=== PATIENT | male | born 1945 | race Caucasian/White ===

== ENCOUNTER → 2016-10-25 | Outpatient (CLI) | payer MEDICARE ==
[2016-10-25 18:37] LABS: Basophils # (A) 0.1 k/uL (0-0.2); Basophils % (A) 1 %; CH 32.3; CHCM 34.4; Eosinophils # (A) 0.4 k/uL (0-0.7); Eosinophils % (A) 7 %; HCT 49.2 % (39.0-53.0); HGB 16.5 gm/dL (13.0-17.5); Luc # (Auto) 0.15; Luc % (Auto) 3; Lymphocytes # (A) 1.3 k/uL (1.0-4.8); Lymphocytes % (A) 22 %; MCH 31.7 pg (25.0-35.0); MCHC 33.6 g/dL (31.0-37.0); MCV 94.3 fL (80.0-100.0); Mean Platelet Volume 7.4; Monocytes # (A) 0.6 k/uL (0-1.0); Monocytes % (A) 9 %; Neutrophils # (A) 3.5 k/uL (1.3-7.7); Neutrophils % (A) 58 %; RBC 5.22 m/uL (4.30-5.90); RDW 13.6 % (11.5-15.5); WBC 5.9 k/uL (3.8-10.6); WBC (Perox) 5.82
[2016-10-25 18:59] LABS: ALT 29 U/L (21-72); AST 24 U/L (17-59); Alkaline Phosphatase 84 U/L (38-126); Anion Gap 13 mmol/L; Blood Urea Nitrogen 19 mg/dL (9-20); Calcium 9.7 mg/dL (8.4-10.2); Carbon Dioxide 28 mmol/L (22-30); Chloride 101 mmol/L (98-107); Cholesterol 179 mg/dL (<200); Glucose 88 mg/dL (74-99); HDL Cholesterol 56 mg/dL (40-60); Non-African American GFR(MDRD) 59 (>60 ml/min/1.73 sqM); Potassium 4.1 mmol/L (3.5-5.1); Sodium 142 mmol/L (137-145); Total Bilirubin 1.2 mg/dL (0.2-1.3); Triglycerides 117 mg/dL (<150)
== END | disposition home or self-care (01) ==
LOC: MMGSC 09:40
PROVIDERS: ATTEND Family Medicine
DX: Z00.00 Encounter for general adult medical examination without abnormal findings (principal); Z12.5 Encounter for screening for malignant neoplasm of prostate; I10 Essential (primary) hypertension; E78.5 Hyperlipidemia, unspecified
CPT/HCPCS: 80061; 80053; 85025; 36415; G0103

== ENCOUNTER 2019-02-14 12:18 | Observation (INO) | payer MEDICARE ==
[2019-02-14] MEDS ORDERED: SODIUM CHLORIDE 0.9% 1,000 ML IV STA (12:59)
[2019-02-14] MEDS ORDERED: HEPARIN SODIUM,PORCINE 5,000 UNIT/ML 1 ML VIAL IV PRN (13:09)
--- NOTE | 2019-02-14 13:12 | ED ---
General Adult HPI - General Chief complaint: Arrhythmia/Palpitations Stated complaint: AFIB Time Seen by Provider: 02/14/19 12:28 Source: patient, family Mode of arrival: ambulatory Limitations: no limitations - History of Present Illness Initial comments: Dictation was produced using [employer] dictation software. please excuse any gramma tical, word or spelling errors. Chief Complaint: 73-year-old male past medical history of hypertension presents with new onset atrial fibrillation. History of Present Illness: Patient is a 73-year-old male. He was at the surgery Center about to get surgery to his left hand when he had a preop EKG showing atrial fibrillation. Patient is no history of cardiac disease. Patient denies any symptoms of palpitations. He went for a walk for approximately 2-3 miles without any issues. Patient has no other complaints at this time. Over the last 3 weeks she's been having a cough heart rate improved. Patient has no other complaints. The ROS documented in this emergency department record has been reviewed and confirmed by me. Those systems with pertinent positive or negative responses have been documented in the HPI. All other systems are other negative and/or noncontributory. PHYSICAL EXAM: General Impression: Alert and oriented x3, not in acute distress HEENT: Normocephalic atraumatic, extra-ocular movements intact, pupils equal and reactive to light bilaterally, mucous membranes moist. Cardiovascular: Irregularly irregular Chest: Lungs clear to auscultation bilaterally, no rhonchi, no wheeze, no rales Abdomen: Bowel sounds present, abdomen soft, non-tender, non-distended, no organomegaly Musculoskeletal: Pulses present and equal in all extremities, no peripheral edema Motor: no focal deficits noted Neurological: CN II-XII grossly intact, no focal motor or sensory deficits noted Skin: Intact with no visualized rashes Psych: Normal affect and mood ED course: 73-year-old male with no onset atrial fibrillation. Upon arrival are within acceptable limits. EKG shows atrial fibrillation. Patient is otherwise well-appearing. Laboratory evaluation obtained. CBC, coag panel, metabolic panel is unremarkable. Troponin is 0.022. Patient reevaluated and continues to endorse no symptoms. Chest x-ray is unremarkable. Patient be admitted for notes atrial fibrillation. Patient started on heparin. Discussed patient case with Dr. Mckinley rate was went except patient's care. Cardiology to be consulted. EKG interpretation: Ventricular rate 91, A. fib, QS 94, QTC 418. No GA prolongation, no QTC prolongation, no ST or T-wave changes noted. - Related Data Home Medications Medication Instructions Recorded Confirmed Dicyclomine [Bentyl] 10 mg PO TID 02/14/19 02/14/19 Hydrochlorothiazide [Hydrodiuril] 12.5 mg PO DAILY 02/14/19 02/14/19 Lisinopril [Zestril] 10 mg PO DAILY 02/14/19 02/14/19 Pantoprazole Sodium 20 mg PO DAILY 02/14/19 02/14/19 Simvastatin [Zocor] 40 mg PO DAILY 02/14/19 02/14/19 Allergies Allergy/AdvReac Type Severity Reaction Status Date / Time No Known Allergies Allergy Verified 02/14/19 12:39 Review of Systems ROS Statement: Those systems with pertinent positive or pertinent negative responses have been documented in the HPI. ROS Other: All systems not noted in ROS Statement are negative. 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 ] Respiratory 18 18 Rate Blood Pressure 114/88 106/79 O2 Sat by Pulse 97 97 Oximetry Medical Decision Making - Lab Data Result diagrams: 02/14/19 13:50 02/14/19 13:50 Lab Results 02/14/19 02/14/19 02/14/19 Range/Units 13:50 13:50 13:50 WBC 6.1 (3.8-10.6) k/uL RBC 5.44 (4.30-5.90) m/uL Hgb 16.5 (13.0-17.5) gm/dL Hct 49.6 (39.0-53.0) % MCV 91.1 (80.0-100.0) fL MCH 30.4 (25.0-35.0) pg MCHC 33.4 (31.0-37.0) g/dL RDW 13.1 (11.5-15.5) % Plt Count 270 (150-450) k/uL Neutrophils % 62 % Lymphocytes % 19 % Monocytes % 9 % Eosinophils % 6 % Basophils % 2 % Neutrophils # 3.7 (1.3-7.7) k/uL Lymphocytes # 1.2 (1.0-4.8) k/uL Monocytes # 0.6 (0-1.0) k/uL Eosinophils # 0.4 (0-0.7) k/uL Basophils # 0.1 (0-0.2) k/uL PT 10.6 (9.0-12.0) sec INR 1.0 (<1.2) APTT 26.2 (22.0-30.0) sec Sodium 140 (137-145) mmol/L Potassium 4.0 (3.5-5.1) mmol/L Chloride 105 (98-107) mmol/L Carbon Dioxide 27 (22-30) mmol/L Anion Gap 8 mmol/L BUN 23 H (9-20) mg/dL Creatinine 1.12 (0.66-1.25) mg/dL Est GFR (CKD-EPI)AfAm 74 (>60 ml/min/1.73 sqM) Est GFR (CKD-EPI)NonAf 64 (>60 ml/min/1.73 sqM) Glucose 92 (74-99) mg/dL Calcium 9.7 (8.4-10.2) mg/dL Magnesium 2.0 (1.6-2.3) mg/dL Total Bilirubin 0.8 (0.2-1.3) mg/dL AST 23 (17-59) U/L ALT 24 (21-72) U/L Alkaline Phosphatase 84 (38-126) U/L Troponin I (0.000-0.034) ng/mL Total Protein 7.0 (6.3-8.2) g/dL Albumin 4.1 (3.5-5.0) g/dL 02/14/19 Range/Units 13:50 WBC (3.8-10.6) k/uL RBC (4.30-5.90) m/uL Hgb (13.0-17.5) gm/dL Hct (39.0-53.0) % MCV (80.0-100.0) fL MCH (25.0-35.0) pg MCHC (31.0-37.0) g/dL RDW (11.5-15.5) % Plt Count (150-450) k/uL Neutrophils % % Lymphocytes % % Monocytes % % Eosinophils % % Basophils % % Neutrophils # (1.3-7.7) k/uL Lymphocytes # (1.0-4.8) k/uL Monocytes # (0-1.0) k/uL Eosinophils # (0-0.7) k/uL Basophils # (0-0.2) k/uL PT (9.0-12.0) sec INR (<1.2) APTT (22.0-30.0) sec Sodium (137-145) mmol/L Potassium (3.5-5.1) mmol/L Chloride (98-107) mmol/L Carbon Dioxide (22-30) mmol/L Anion Gap mmol/L BUN (9-20) mg/dL Creatinine (0.66-1.25) mg/dL Est GFR (CKD-EPI)AfAm (>60 ml/min/1.73 sqM) Est GFR (CKD-EPI)NonAf (>60 ml/min/1.73 sqM) Glucose (74-99) mg/dL Calcium (8.4-10.2) mg/dL Magnesium (1.6-2.3) mg/dL Total Bilirubin (0.2-1.3) mg/dL AST (17-59) U/L ALT (21-72) U/L Alkaline Phosphatase (38-126) U/L Troponin I 0.022 (0.000-0.034) ng/mL Total Protein (6.3-8.2) g/dL Albumin (3.5-5.0) g/dL Disposition Clinical Impression: Atrial fibrillation Disposition: ADMITTED IP TO THIS HOSP Condition: Fair Referrals: Dara Holbrook MD [Primary Care Provider] - 1-2 days Decision Time: 15:14
[2019-02-14] MEDS ORDERED: HEPARIN SOD,PORK IN 0.45% NACL 25,000 UNIT in 0.45% NACL 1 250ML.BAG IV SCH (13:15)
[2019-02-14] MEDS: HEPARIN SODIUM,PORCINE 5,000 UNIT/ML 1 ML VIAL IV ONE (13:56)
[2019-02-14 14:01] LABS: Basophils # (A) 0.1 k/uL (0-0.2); Basophils % (A) 2 %; Eosinophils # (A) 0.4 k/uL (0-0.7); Eosinophils % (A) 6 %; HCT 49.6 % (39.0-53.0); HGB 16.5 gm/dL (13.0-17.5); Lymphocytes # (A) 1.2 k/uL (1.0-4.8); Lymphocytes % (A) 19 %; MCH 30.4 pg (25.0-35.0); MCHC 33.4 g/dL (31.0-37.0); MCV 91.1 fL (80.0-100.0); Mean Platelet Volume 6.8; Monocytes # (A) 0.6 k/uL (0-1.0); Monocytes % (A) 9 %; Neutrophils # (A) 3.7 k/uL (1.3-7.7); Neutrophils % (A) 62 %; Platelet Count 270 k/uL (150-450); RBC 5.44 m/uL (4.30-5.90); RDW 13.1 % (11.5-15.5); WBC 6.1 k/uL (3.8-10.6)
--- NOTE | 2019-02-14 14:15 | XR ---
EXAMINATION TYPE: XR chest 2V DATE OF EXAM: 02/14/2019 COMPARISON: NONE HISTORY: Atrial fibrillation. TECHNIQUE: Frontal and lateral views of the chest are obtained. FINDINGS: Overlying EKG leads are seen. There is chronic parenchymal change without suspicious focal air space opacity, pleural effusion, or pneumothorax seen. The cardiac silhouette size is upper hu its of normal. Mild diffuse tracheal narrowing is noted. The osseous structures are intact. IMPRESSION: No suspicious acute pulmonary infiltrate.
[2019-02-14 14:17] LABS: Albumin 4.1 g/dL (3.5-5.0); Calcium 9.7 mg/dL (8.4-10.2); Total Bilirubin 0.8 mg/dL (0.2-1.3)
[2019-02-14 14:23] LABS: Partial Thromboplastin Time 26.2 sec (22.0-30.0); Prothrombin Time 10.6 sec (9.0-12.0)
[2019-02-14] MEDS ORDERED: NALOXONE 0.4 MG/ML 1 ML VIAL IV PRN (15:14)
[2019-02-14] MEDS ORDERED: SODIUM CHLORIDE 0.9% 1,000 ML IV SCH (15:15)
--- NOTE | 2019-02-14 17:30 | P.HPIM ---
History of Present Illness H&P Date: 02/14/19 Chief Complaint: Referred from preop for A. fib The patient is a 73-year-old male the past medical history of essential hypertension, GERD, dyslipidemia who was referred to the ER from Dr. Lynn office for A. fib with RVR. Apparently the patient was having his preop workup for planned scheduled left wrist surgery when the patient was noted to be in A. fib with RVR with a rate of 105, the patient denied any symptoms of lightheadedness palpitations dizziness chest pain nausea vomiting blurry vision. The patient has no complaints he denies shortness of breath cough or subjective fevers chills or night sweats. The patient reports that he's physically active reports that he walks 2 miles several times a week without any exertional dyspnea or chest pain. In the ER the patient had a EKG and that showed atrial fibrillation with controlled ventricular rate with heart rate in the 80s, chest x-ray showed no acute pulmonary infiltrate. Troponin was 0.022. The patient was started on heparin drip and recommended for admission for A. fib Review of Systems Pertinent positives per HPI all other systems negative Past Medical History Past Medical History: Hypertension History of Any Multi-Drug Resistant Organisms: None Reported Past Surgical History: Back Surgery, Bladder Surgery, Orthopedic Surgery Additional Past Surgical History / Comment(s): Gastric abscess removal surgery, Left Knee repair Past Psychological History: No Psychological Hx Reported Smoking Status: Former smoker Past Alcohol Use History: Occasional Past Drug Use History: None Reported Medications and Allergies Home Medications Medication Instructions Recorded Confirmed Type Dicyclomine [Bentyl] 10 mg PO TID 02/14/19 02/14/19 History Hydrochlorothiazide [Hydrodiuril] 12.5 mg PO DAILY 02/14/19 02/14/19 History Lisinopril [Zestril] 10 mg PO DAILY 02/14/19 02/14/19 History Pantoprazole Sodium 20 mg PO DAILY 02/14/19 02/14/19 History Simvastatin [Zocor] 40 mg PO DAILY 02/14/19 02/14/19 History Allergies Allergy/AdvReac Type Severity Reaction Status Date / Time No Known Allergies Allergy Verified 02/14/19 12:39 Physical Exam Vitals: Vital Signs Temp Pulse Pulse Resp BP Pulse Ox 02/14/19 14:02 80 18 106/79 97 02/14/19 12:45 99 02/14/19 12:24 98.2 F 87 18 114/88 97 Intake and Output 02/14/19 02/14/19 02/14/19 06:59 14:59 22:59 Other: Weight 85.729 kg Constitutional: No acute distress, conversant, pleasant Eyes: Anicteric sclerae, moist conjunctiva, no lid-lag, PERRLA ENMT: NC/AT,Oropharynx clear, no erythema, exudates Neck:Supple, FROM, no masses, or JVD, No carotid bruits; No thyromegaly Lungs: Clear to auscultation, Clear to percussion, Normal respiratory effort, no accessory muscle use Cardiovascular: Heart regular in rate and rhythm, No murmurs, gallops, or rubs no peripheral edema Abdominal: Soft Nontender, nom distended, no guarding, no rebound or rigidity, Normoactive bowel sounds No hepatomegaly, No splenomegaly, No palpable mass No abdominal wall hernia noted Skin: Normal temperature, tone, texture, turgor, No induration No subcutaneous nodules, No rash, lesions, No ulcers Extremities:No digital cyanosis No clubbing, Pedal pulses intact and symmetrical Radial pulses intact and symmetrical Normal gait and station, No calf tenderness Psychiatric: Alert and oriented to person, place and time, Appropriate affect Intact judgement Neuro: Muscles Strength 5/5 in all 4 extremities, Sensation to light touch grossly present throughout, Cranial nerves II-XII grossly intact. No focal sensory deficits Results CBC & Chem 7: 02/14/19 13:50 02/14/19 13:50 Labs: Abnormal Lab Results - Last 24 Hours (Table) 02/14/19 Range/Units 13:50 BUN 23 H (9-20) mg/dL Assessment and Plan (1) New onset atrial fibrillation Current Visit: Yes Status: Acute Code(s): I48.91 - UNSPECIFIED ATRIAL FIBRILLATION SNOMED Code(s): 62177549 (2) Essential hypertension Current Visit: Yes Status: Acute Code(s): I10 - ESSENTIAL (PRIMARY) HYPERTENSION SNOMED Code(s): 02614526 (3) Dyslipidemia Current Visit: Yes Status: Acute Code(s): E78.5 - HYPERLIPIDEMIA, UNSPECIFIED SNOMED Code(s): 639135122 (4) GERD (gastroesophageal reflux disease) Current Visit: Yes Status: Acute Code(s): K21.9 - GASTRO-ESOPHAGEAL REFLUX DISEASE WITHOUT ESOPHAGITIS SNOMED Code(s): 121058841 Plan: Patient is placed in observation anticipate a less than 2 midnight stay with atrial fibrillation with controlled ventricular rate found incidentally on his preop workup, electrolytes are normal will order TSH and NT proBNP and echocardiogram, with plans to consult cardiology for further recommendations. We'll plan to transition the patient to DOAC eliquis later today. We'll resume his home hypertensive regimen and continue to follow his clinical course. CODE STATUS: Full code Anticipated discharge 1-[address]: Home Discussed plan of care with patient's /son
[2019-02-14] MEDS: APIXABAN 5 MG TAB PO SCH ×2 (21:28→21:38)
[2019-02-14] MEDS: DICYCLOMINE 10 MG CAP PO SCH (21:38)
[2019-02-15 05:37] VITALS: RESP 18
[2019-02-15] MEDS ORDERED: PANTOPRAZOLE 40 MG TABLET PO SCH (07:30)
[2019-02-15 08:02] VITALS: TEMP 98.1
[2019-02-15] MEDS: DICYCLOMINE 10 MG CAP PO SCH (08:11)
[2019-02-15] MEDS: APIXABAN 5 MG TAB PO SCH (08:11)
[2019-02-15] MEDS ORDERED: ATORVASTATIN 20 MG TAB PO SCH (09:00)
[2019-02-15] MEDS ORDERED: LISINOPRIL 10 MG TAB PO SCH (09:00)
[2019-02-15] MEDS ORDERED: HYDROCHLOROTHIAZIDE 12.5 MG CAP PO SCH (09:00)
--- NOTE | 2019-02-15 09:36 | ECHOF ---
Referral Reason:A. fib MEASUREMENTS -------- HEIGHT: 172.7 cm WEIGHT: 87.1 kg BP: 112/85 IVSd: 1.0 cm (0.6 - 1.1) LVIDd: 3.3 cm (3.9 - 5.3) LVPWd: 1.2 cm (0.6 - 1.1) IVSs: 1.8 cm LVIDs: 1.1 cm LVPWs: 1.5 cm LAESV Index (A-L): 26.01 ml/m Ao Diam: 3.4 cm (2.0 - 3.7) AV Cusp: 2.0 cm (1.5 - 2.6) LA Diam: 3.0 cm (2.7 - 3.8) RAP: 5.00 mmHg RVSP: 21.43 mmHg FINDINGS -------- Atrial fibrillation. This was a technically adequate study. The left ventricular size is normal. There is mild concentric left ventricular hypertrophy. Overa ll left ventricular systolic function is normal with, an EF between 55 - 60 %. The right ventricle is normal in size. Normal LA size by volume 22+/-6 ml/m2. The right atrial size is normal. The aortic valve is trileaflet and appears structurally normal. The mitral valve is normal. The mitral valve leaflets are mildly thickened. There is trace mitral regurgitation. The tricuspid valve appears structurally normal. Trace tricuspid regurgitation present. Right doug tricular systolic pressure is normal at < 35 mmHg. There is no pulmonic regurgitation present. The aortic root size is normal. Normal inferior vena cava with normal inspiratory collapse consistent with estimated right atrial pre ssure of 5 mmHg. There is no pericardial effusion. CONCLUSIONS -------- 1. Atrial fibrillation. 2. This was a technically adequate study. 3. The left ventricular size is normal. 4. There is mild concentric left ventricular hypertrophy. 5. Overall left ventricular systolic function is normal with, an EF between 55 - 60 %. 6. The right ventricle is normal in size. 7. Normal LA size by volume 22+/-6 ml/m2. 8. The right atrial size is normal. 9. The aortic valve is trileaflet and appears structurally normal. 10. The mitral valve is normal. 11. The mitral valve leaflets are mildly thickened. 12. There is trace mitral regurgitation. 13. The tricuspid valve appears structurally normal. 14. Trace tricuspid regurgitation present. 15. Right ventricular systolic pressure is normal at < 35 mmHg. 16. There is no pulmonic regurgitation present. 17. The aortic root size is normal. 18. Normal inferior vena cava with normal inspiratory collapse consistent with estimated right atrial pressure of 5 mmHg. 19. There is no pericardial effusion. COLLAR CUTTER: Fallon Sanchez RDCS
[2019-02-15 11:16] VITALS: BP 112/77; PULSE 73
--- NOTE | 2019-02-15 17:34 | P.DS ---
Providers Date of admission: 02/14/19 15:14 Expected date of discharge: 02/15/19 Attending physician: Elías López MD Consults: 02/15/19 15:32 Consult Physician Routine Consulting Provider: Jona Arreguin Consult Reason/Comments: new AFib Do you want consulting provider notified?: Already Contacted Primary care physician: Dara Holbrook - Discharge Diagnosis(es) (1) New onset atrial fibrillation Status: Acute (2) Essential hypertension Status: Acute (3) Dyslipidemia Status: Acute (4) GERD (gastroesophageal reflux disease) Status: Acute Hospital Course: The patient is a 73-year-old male the past medical history of essential hypertension, GERD, dyslipidemia who was referred to the ER from Dr. Lynn office for A. fib with RVR. Apparently the patient was having his preop workup for planned scheduled left wrist surgery. The patient arrived to the ER the patient was noted to be in A. fib with a controlled ventricular rate in the 80s he was started on heparin drip, chest x-ray was ordered showed no acute infiltrate troponin was negative at 0.022. Echocardiogram done was consistent with ejection fraction of 55-60%, without any significant valvular abnormalities. Given the patient's CHA2 DS2 Vasc score of 3 and discussing ongoing anticoagulation patient opted for DOAC Eliquis as after risk and benefits were weighed and discussed thoroughly. The patient was seen by cardiology and subsequently discharged home in stable condition with plans for follow-up with Dr. Arreguin 02/22/19. this discharge process took approximately 30 minutes Focused exam Cardiovascular: irregularly irregular, no murmurs, rubs or gallop, no peripheral edema Patient Condition at Discharge: Good Plan - Discharge Summary Discharge Rx Participant: No New Discharge Prescriptions: New Apixaban [Eliquis] 5 mg PO BID #60 tab Continue Pantoprazole Sodium 20 mg PO DAILY Lisinopril [Zestril] 10 mg PO DAILY Simvastatin [Zocor] 40 mg PO DAILY Hydrochlorothiazide [Hydrodiuril] 12.5 mg PO DAILY Dicyclomine [Bentyl] 10 mg PO TID Discharge Medication List Dicyclomine [Bentyl] 10 mg PO TID 02/14/19 [History] Hydrochlorothiazide [Hydrodiuril] 12.5 mg PO DAILY 02/14/19 [History] Lisinopril [Zestril] 10 mg PO DAILY 02/14/19 [History] Pantoprazole Sodium 20 mg PO DAILY 02/14/19 [History] Simvastatin [Zocor] 40 mg PO DAILY 02/14/19 [History] Apixaban [Eliquis] 5 mg PO BID #60 tab 02/15/19 [Rx] Follow up Appointment(s)/Referral(s): Jona Arreguin MD [STAFF PHYSICIAN] - 02/22/19 10:15 am Dara Holbrook MD [Primary Care Provider] - 02/19/19 11:45 am Patient Instructions/Handouts: A-fib (Atrial Fibrillation) (DC), Safe Use of Anticoagulants (DC) Discharge Disposition: HOME SELF-CARE
--- NOTE | 2019-02-15 17:59 | CONS ---
CONSULTATION Mr. Reza is a 73-year-old male with known history of hypertension and history of hyperlipidemia who presented to Dr. Lynn to undergo hand surgery, when he was noted to be in atrial fibrillation. The patient is unaware of the arrhythmia. He is active physically; walks 3-4 miles a day without any difficulty. Denies any change in his breathing or energy. Denies any palpitation, dizziness or syncope. He has no chest discomfort. No PND, orthopnea or peripheral edema. He was sent to the emergency room and subsequently admitted. He remains in persistent atrial fibrillation with controlled ventricular response. His coronary risk factors are remarkable for hypertension and hyperlipidemia. He stopped smoking 40 years ago. He is nondiabetic and there is no family history of premature coronary disease. HOME MEDICATIONS: His medications at home include: 1. Simvastatin 40 mg daily. 2. Lisinopril 10 mg daily. 3. Protonix 20 mg daily. 4. Hydrochlorothiazide 12.5 mg daily. 5. Bentyl. REVIEW OF SYSTEMS: RESPIRATORY SYSTEM: He has no recent wheezing. No cough. He has some sinus drainage. No history of obstructive lung disease. GI SYSTEM: No recent GI bleeding. No peptic ulcer disease. He has prior history of diverticulitis. SYSTEM: No dysuria or hematuria. NERVOUS SYSTEM: No stroke or seizure. SOCIAL HISTORY: He drinks black tea. Rare alcohol intake. PHYSICAL EXAMINATION: He is a 73-year-old male, alert, oriented, in no apparent distress. Blood pressure 112/70 with a heart rate in the 70s. HEAD: Normocephalic. EYES: Sclerae anicteric. NECK: Good carotid upstroke. No bruit. No jugular venous distention. LUNGS: Clear to auscultation. HEART: Irregularly irregular. S1, S2. No S3. No rub. ABDOMEN: Soft, nontender. Positive bowel sounds. No organomegaly. EXTREMITIES: No edema. Intact distal pulses. LAB DATA/IMAGING: Troponin 0.022. NT-proBNP of 265. TSH 1.6. Potassium 4.0. BUN and creatinine 23 and 1.12. Hemoglobin of 16.5, white blood cells of 6.1. EKG revealed atrial fibrillation, rate of 91, normal axis and intervals. Nonspecific ST- T wave changes with poor R-wave progression. Echocardiogram revealed a preserved left ventricular size and systolic function with no significant valvular disease. Chest x- ray shows no acute infiltrate. IMPRESSION: 1. Atrial fibrillation of unknown duration, asymptomatic. According to the patient, he had an EKG about 2 weeks ago that was reported to show sinus mechanism. 2. History of hypertension. 3. Hyperlipidemia. RECOMMENDATIONS: From the cardiac standpoint, his CHADS VASC 2 score is 2. The patient has been started on Eliquis. His ventricular response has been under reasonable control without any negative chronotropic drugs, suggestive of evidence of AV aureliano disease. The patient has been ambulating without difficulty. From the cardiac standpoint, he should be able to be discharged home today and followed as an outpatient. If he has persistent atrial fibrillation, then he can be evaluated for cardioversion to try to restore sinus mechanism. Those findings and recommendations were discussed with the patient and his family, and they are in full understanding and agreement. Thank you for this consult. Will follow with you. TIFFANY / MADDIE: [id number] /
== END 2019-02-15 17:18 | disposition home or self-care (01) ==
LOC: EC 12:18 → 3SCARD 15:14
PROVIDERS: ADMIT Family Medicine; ATTEND Family Medicine
DX: I48.1 Persistent atrial fibrillation (principal); I10 Essential (primary) hypertension; K21.9 Gastro-esophageal reflux disease without esophagitis; E78.5 Hyperlipidemia, unspecified; Z79.899 Other long term (current) drug therapy; Z87.891 Personal history of nicotine dependence; Z87.19 Personal history of other diseases of the digestive system
CPT/HCPCS: 96366 ×2; 96376; 96365; 99285; 36415; 93005; 93306; 83880; 80053; 84443; 83735; 84484; 85025; 85610; 85730; 71046; G0378 ×2; J1644 ×2

== ENCOUNTER 2021-01-30 19:23 | Emergency (ER) | payer MEDICARE ==
[2021-01-30 19:30] VITALS: BP 137/92; PULSE 100; RESP 20; TEMP 97.9
[2021-01-30] MEDS ORDERED: KETOROLAC 15 MG/ML 1 ML VIAL IM STA (19:56)
--- NOTE | 2021-01-30 20:15 | ED ---
ENT HPI - General Chief complaint: ENT Stated complaint: Ear infection Time Seen by Provider: 01/30/21 19:34 Source: patient Mode of arrival: ambulatory Limitations: no limitations - History of Present Illness Initial comments: Patient is a 75-year-old male presenting to emergency Department with complaints of right ear discomfort over the past month. He states he's been dealing with an outer ear infection over the past few weeks. He was able to see an ENT specialist, has appointment was on a Monday, 5 days ago. They put an ear wick in and he is currently on antibiotic eardrops. He states he does have another follow-up in about a week and a half for over the past few days his pain has been increasing. He states he has pain going into his right jaw as well as giving him a headache. He's been trying Tylenol and Motrin without improvement, he did take a tramadol today, he only had mild relief of pain. She talked to his son who is a physician and he recommended coming into the ER for further evaluation. Patient denies any fevers or chills, no chest pain or shortness of breath, no nausea or vomiting. He has no further complaints. - Related Data Home Medications Medication Instructions Recorded Confirmed Dicyclomine [Bentyl] 10 mg PO TID 02/14/19 02/14/19 Pantoprazole Sodium 20 mg PO DAILY 02/14/19 02/14/19 Simvastatin [Zocor] 40 mg PO DAILY 02/14/19 02/14/19 hydroCHLOROthiazide [Hydrodiuril] 12.5 mg PO DAILY 02/14/19 02/14/19 lisinopriL [Zestril] 10 mg PO DAILY 02/14/19 02/14/19 Previous Rx's Medication Instructions Recorded Apixaban [Eliquis] 5 mg PO BID #60 tab 02/15/19 Ciprofloxacin HCl [Cipro] 500 mg PO BID 7 Days #14 tab 01/30/21 Allergies Allergy/AdvReac Type Severity Reaction Status Date / Time No Known Allergies Allergy Verified 01/30/21 19:30 Review of Systems ROS Statement: Those systems with pertinent positive or pertinent negative responses have been documented in the HPI. ROS Other: All systems not noted in ROS Statement are negative. Past Medical History Past Medical History: Hyperlipidemia, Hypertension History of Any Multi-Drug Resistant Organisms: None Reported Past Surgical History: Back Surgery, Bladder Surgery, Orthopedic Surgery Additional Past Surgical History / Comment(s): Gastric abscess removal surgery, Left Knee repair Past Anesthesia/Blood Transfusion Reactions: No Reported Reaction Past Psychological History: No Psychological Hx Reported Smoking Status: Never smoker Past Alcohol Use History: Occasional Past Drug Use History: None Reported General Exam - General Exam Comments Initial Comments: GENERAL: Patient is well-developed and well-nourished. Patient is nontoxic and in no acute distress. HEAD: Atraumatic, normocephalic. EYES: Pupils equal round and reactive to light, extraocular movements intact, sclera anicteric, conjunctiva are normal. Eyelids were unremarkable. ENT: Left TM and EAC are normal,, right EAC is very swollen, there is a ear wick present, TM is not visible. He does have some pain with movement of the external ear. No visible facial swelling or erythema on the external ear. nares patent, oropharynx clear without exudates. Moist mucous membranes. NECK: Normal range of motion, supple without lymphadenopathy or JVD. LUNGS: Unlabored respirations. Breath sounds clear to auscultation bilaterally and equal. No wheezes rales or rhonchi. HEART: Regular rate and rhythm without murmurs, rubs or gallops. MUSCULOSKELETAL: Normal extremities with adequate strength and normal range of motion, no pitting or edema. No clubbing or cyanosis. NEUROLOGICAL: Patient is alert and oriented x 3. Motor and sensory are also intact. Cranial nerves II through XII grossly intact. Symmetrical smile. Normal speech, normal gait. PSYCH: Normal mood, normal affect. SKIN: Warm, Dry, normal turgor, no rashes or lesions noted. Limitations: no limitations Course Vital Signs 01/30/21 19:27 Temperature 97.9 F Pulse Rate 100 Respiratory 20 Rate Blood Pressure 137/92 O2 Sat by Pulse 98 Oximetry Medical Decision Making - Medical Decision Making Patient is a 75-year-old male here for right ear pain over the past month. He is currently being treated for otitis externa, he has a every week present, not able to visualize his TM secondary to swelling in the ear wick. He continues to have pain. His vitals are stable, afebrile. CT of the mastoid, brain showed no acute abnormalities other then the right sided otitis externa. Patient was given Toradol for discomfort today. I discussed with patient that he needs to continue to follow-up with his ENT. I will put him on some oral antibiotics to see if that improves his symptoms. He should continue with his eardrops. He is agreeable to this plan of care. Return parameters were discussed with him and he verbalized understanding. Case discussed with Dr. Juarez. Disposition Clinical Impression: Right otitis externa Disposition: HOME SELF-CARE Condition: Stable Instructions (If sedation given, give patient instructions): Otitis Externa (ED) Additional Instructions: Please return to the Emergency Department if symptoms worsen or any other concerns. Please continue with your already prescribed ear drops. Take oral antibiotics as prescribed. Continue with Tylenol and/or ibuprofen for discomfort. Follow-up with your ENT. Prescriptions: Ciprofloxacin HCl [Cipro] 500 mg PO BID 7 Days #14 tab Is patient prescribed a controlled substance at d/c from ED?: No Referrals: Dara Holbrook MD [Primary Care Provider] - 1-2 days Kavin Churchill DO [Doctor of Osteopathic Medicine] - 1-2 days Time of Disposition: 21:43
--- NOTE | 2021-01-30 20:58 | CT ---
EXAMINATION TYPE: CT mastoid wo con DATE OF EXAM: 01/30/2021 COMPARISON: HISTORY: RT ear pain x1 month. CT DLP: 230.3 mGycm Automated exposure control for dose reduction was used. CT scan of the temporal bones. History right ear pain for one month. Comparison none. FINDINGS: Images obtained without contrast through the temporal bones. There is occlusion of the right external auditory canal. There is normal aeration of the epitympanic recess bilaterally. There is fairly normal aeration of the middle ear cavity bilaterally. The mastoid air cells show fairly normal aeration. I see no bony destructive process. Mandibular condyles are in tact. The internal auditory canals are intact. There is no evidence of cerebellopontine angle mass. IMPRESSION: Occlusion right external auditory canal consistent with otitis externa. No abnormalities seen of the middle ear cavity.
[2021-01-30] MEDS ORDERED: ACET/COD 300 MG/30 MG STARTER PACK 6 TAB BTL PO STA (21:42)
== END 2021-01-30 21:55 | disposition home or self-care (01) ==
LOC: EC 19:23
DX: H60.91 Unspecified otitis externa, right ear (principal); I10 Essential (primary) hypertension; E78.5 Hyperlipidemia, unspecified; Z79.01 Long term (current) use of anticoagulants; Z79.899 Other long term (current) drug therapy
CPT/HCPCS: 70486; 99283; 96372; J1885

== ENCOUNTER 2022-02-01 09:19 | Day surgery (SDC) | payer MEDICARE ==
[~2022-02-01 09:19] MED LIST: LACTATED RINGERS 1,000 ML IV SCH
[2022-02-01 09:51] VITALS: TEMP 98
[2022-02-01] MEDS ORDERED: LIDOCAINE 1% (10MG/ML) FOR IV START INTRADERMA ONE (10:05)
[2022-02-01] MEDS ORDERED: PROPOFOL 10 MG/ML 20 ML VIAL IV ONE (11:06)
--- NOTE | 2022-02-01 11:25 | P.PCN ---
Date of Procedure: 02/01/22 Procedure(s) Performed: BRIEF HISTORY: Patient is a 76-year-old pleasant white male scheduled for an elective colonoscopy as a part of evaluation of lower abdominal pain and change in bowel habits. PROCEDURE PERFORMED: Colonoscopy with snare polypectomy. PREOPERATIVE DIAGNOSIS: Lower abdominal pain and change in bowel habits. IV sedation per Anesthesia. PROCEDURE: After informed consent was obtained, the patient, was brought into the endoscopy unit. IV sedation was administered by Anesthesia under continuous monitoring. Digital rectal examination was normal. Initially the Olympus CF-160 flexible video colonoscope was then inserted in the rectum, gradually advanced into the cecum without any difficulty. Careful examination was performed as the scope was gradually being withdrawn. Ileocecal valve and the appendiceal orifice were visualized and appeared normal. Prep was excellent. Mucosa of the cecum, ascending colon, transverse colon, descending colon, sigmoid colon, and rectum appeared normal. In the distal rectum there was a 5 mm polyp that was removed by snare polypectomy. Retroflexion was performed in the rectum and no lesions were seen. The patient tolerated the procedure well. IMPRESSION: 5 mm rectal polyp status post polypectomy Rest of the colon appeared normal RECOMMENDATIONS: Findings of this examination were discussed with the patient as well as a family. He was advised to follow with the biopsy results..
[2022-02-01 12:00] VITALS: BP 132/83; PULSE 49; RESP 20
== END 2022-02-01 12:06 | disposition home or self-care (01) ==
LOC: ORWHC2ENDO 09:19
PROVIDERS: ATTEND Internal Medicine Gastroenterology
DX: K63.5 Polyp of colon (principal); K21.9 Gastro-esophageal reflux disease without esophagitis; I10 Essential (primary) hypertension; E78.5 Hyperlipidemia, unspecified; I48.91 Unspecified atrial fibrillation; Z98.890 Other specified postprocedural states; Z79.01 Long term (current) use of anticoagulants; Z79.899 Other long term (current) drug therapy
CPT/HCPCS: 88305; 45385; J2704

== ENCOUNTER → 2022-04-06 | Outpatient (CLI) | payer MEDICARE ==
--- NOTE | 2022-04-06 15:45 | CT ---
EXAMINATION TYPE: CT angio chest DATE OF EXAM: 04/06/2022 COMPARISON: None HISTORY: 76-year-old male I72.71, Aneurysm ascending aorta TECHNIQUE: Contiguous axial scanning of the chest performed without and with IV Contrast, patient inj ected with 100ml mL of Isovue 370. Coronal/sagittal MIP reconstructions performed. 3-D reconstruction s generated on a dedicated independent workstation. CT DLP: 832.3 mGycm Automated exposure control for dose reduction was used. FINDINGS: Heart normal size without pericardial effusion. Some LAD coronary artery calcifications are noted. Aorta is borderline ectatic at 3.5 cm. Ectatic ascending aorta 3.8 cm. Bovine configuration to the aortic arch. Mild atherosclerotic arch calcifications. Initial noncontrast images show no evidence for acute intramural hematoma. Upper descending thoracic aorta aneurysmal at 3.5 cm. Mid descending thoracic aorta mildly aneurysmal at 3.0 cm. Lower descending thoracic aorta tortuous and aneurysmal up to 3.3 cm. Aorta at the thoracoabdominal junction mildly aneurysmal at 3.1 cm. Possible focal kinking and moderate to severe narrowing at the proximal celiac axis, axial image 149 and sagittal image 80 series 16. No evidence for aortic dissection. Large caliber to the main right and left pulmonary arteries up to 2.2 cm suggest underlying pulmonary artery hypertension. No thoracic lymphadenopathy by CT size criteria. Mild diffuse bronchial wall thickening. Dependent atelectasis. Mild emphysematous change. The mild re ticular and groundglass densities in the lower lungs could reflect some underlying fibrosis. Visualized upper abdomen shows cholecystectomy clips and multiple renal cysts measuring up to 6.9 cm. Moderate degenerative disc disease midthoracic spine. Focal levoconvex curvature upper thoracic spine . IMPRESSION: 1. ECTATIC ASCENDING AORTA AT 3.8 CM. ANEURYSMAL DESCENDING THORACIC AORTA UP TO 3.5 CM. 2. POSSIBLE FOCAL KINKING AND MODERATE TO SEVERE NARROWING AT THE PROXIMAL CELIAC AXIS (AXIAL IMAGE 1 49 SERIES 6). CORRELATE CLINICALLY FOR ANY POTENTIAL SYMPTOMS OF MEDIAN ARCUATE LIGAMENT SYNDROME. 3. COPD WITH MILD EMPHYSEMA. 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 4. PULMONARY ARTERIAL HYPERTENSION.
== END | disposition home or self-care (01) ==
LOC: RADCTMAIN 12:29
PROVIDERS: ATTEND Family Medicine
DX: I71.21 Aneurysm of the ascending aorta, without rupture (principal); J43.9 Emphysema, unspecified; I27.21 Secondary pulmonary arterial hypertension
CPT/HCPCS: 82565; 84520; 71275; 36415; Q9967

== ENCOUNTER → 2023-12-12 | Outpatient (CLI) | payer MEDICARE ==
--- NOTE | 2023-12-12 13:12 | XR ---
EXAMINATION TYPE: XR chest 2V DATE OF EXAM: 12/12/2023 12:56 PM CLINICAL INDICATION:Male, 78 years old with history of R05.9 COUGH, UNSPECIFIED; COMPARISON: None TECHNIQUE: XR chest 2V Frontal and lateral views of the chest. FINDINGS: Lungs/Pleura: There is flattening of the diaphragm with increased lucency of the lungs. No evidence o f pneumothorax, pleural effusion or focal consolidation. Pulmonary vascularity: Unremarkable. Heart/mediastinum: Cardiomediastinal silhouette is unremarkable. Musculoskeletal: No acute osseous pathology. IMPRESSION: 1. No acute cardiopulmonary disease process. 2. COPD changes.
== END | disposition home or self-care (01) ==
LOC: RADXRMAIN 12:31
PROVIDERS: ATTEND Family Medicine
DX: J44.9 Chronic obstructive pulmonary disease, unspecified (principal)
CPT/HCPCS: 71046